=== PATIENT | female | born 1975 | race Two or more races ===

== ENCOUNTER 2022-11-26 10:22 | Outpatient (CLI) | payer OTHER | END 2022-11-26 10:33 | disposition home or self-care (01) | LOC: RX STUDY 10:22 | DX: H90.3 Sensorineural hearing loss, bilateral (principal); R42 Dizziness and giddiness; J32.4 Chronic pansinusitis; R13.10 Dysphagia, unspecified; J38.4 Edema of larynx ==

== ENCOUNTER 2022-11-29 12:08 | Outpatient (CLI) | payer OTHER | END 2022-11-29 12:11 | disposition home or self-care (01) | LOC: SONOGRAMA 12:08 | PROVIDERS: ATTEND Pathology Anatomic Pathology | DX: D34 Benign neoplasm of thyroid gland (principal); E04.9 Nontoxic goiter, unspecified ==

== ENCOUNTER 2022-12-04 09:02 | Outpatient (CLI) | payer OTHER | END 2022-12-04 09:05 | disposition home or self-care (01) | LOC: SONOGRAMA 09:02 | PROVIDERS: ATTEND Internal Medicine Hematology & Oncology | DX: R10.2 Pelvic and perineal pain (principal) ==

== ENCOUNTER 2024-06-29 10:08 | Outpatient (CLI) | payer OTHER | END 2024-06-29 10:14 | disposition home or self-care (01) | LOC: SONOGRAMA 10:08 | DX: D25.9 Leiomyoma of uterus, unspecified (principal); R10.2 Pelvic and perineal pain ==

== ENCOUNTER 2024-07-16 09:57 | Outpatient (CLI) | payer OTHER | END 2024-07-16 10:04 | disposition home or self-care (01) | LOC: SONOGRAMA 09:57 | DX: E04.2 Nontoxic multinodular goiter (principal) ==

== ENCOUNTER 2025-02-11 10:15 | Inpatient (IN) | payer OTHER ==
[~2025-02-11] VITALS: Ht 167.6 cm; Wt 104.3 kg
[2025-02-11] MEDS ORDERED: TOPROL XL50 M1 PO (11:18)
[2025-02-11 11:19] VITALS: BP 149/85
[2025-02-11] MEDS ORDERED: MEGESTROL ACETA40 MG PO (11:19)
[2025-02-11 11:53] VITALS: BP 131/79
[2025-02-17] MEDS ORDERED: CEFAZOLIN SODIUM 1,000 MG VIAL IV SCH (06:00)
[2025-02-17] MEDS ORDERED: CEFAZOLIN SODIUM 1,000 MG VIAL ONE (10:23)
[2025-02-17] MEDS ORDERED: BUPIVACAINE HCL/MPF 0.5% 30ML VIAL ONE (12:46)
[2025-02-17] MEDS ORDERED: LIDOCAINE HCL 1%/EPINEPHRINE 20ML VIAL IJ ONE (12:46)
[2025-02-17] MEDS ORDERED: POVIDONE-IODINE 118 ML BOTT TOP ONE (12:46)
[2025-02-17] MEDS ORDERED: VISTASEAL DUAL APPICATOR 1 EACH APPL TOP ONE (13:05)
[2025-02-17] MEDS ORDERED: THROMBIN,HU/FIBRINOGEN/CALCIUM 10 ML SYRINGE TOP ONE (13:05)
[2025-02-17] MEDS ORDERED: SUGAMMADEX SODIUM 200 MG/2 ML VIAL IV ONE (15:52)
[2025-02-17] MEDS ORDERED: CELECOXIB 200 MG CAPSULE PO STA (16:25)
[2025-02-17] MEDS ORDERED: GABAPENTIN 100 MG CAPSULE PO SCH (17:00)
[2025-02-17] MEDS ORDERED: RINGERS SOLUTION,LACTATED 1,000 ML IV SCH (17:00)
[2025-02-17] MEDS ORDERED: ONDANSETRON HCL 2 MG/ML VIAL ONE (17:02)
[2025-02-17] MEDS ORDERED: CELECOXIB 200 MG CAPSULE PO ONE (17:44)
[2025-02-17] MEDS ORDERED: ACETAMINOPHEN 325 MG TABLET PO ONE (17:44)
[2025-02-17] MEDS ORDERED: GABAPENTIN 100 MG CAPSULE PO ONE (17:44)
[2025-02-17 17:49] LABS: BASO % 0.2 % (0.1-1.2); EOS # 0.09 (0.04-0.54); EOS % 0.7 % (0.7-7.0); LYMPH # 1.90 (1.18-3.74); LYMPH % 15.4 % (19.3-53.1); MEAN PLATELET VOLUME 10.00 fl (9.4-12.4); MONO # 0.69 (0.24-0.82); MONO % 5.6 % (4.7-12.5); NEUT # 9.57 (1.56-6.13); NEUT % 77.8 % (34.0-71.1); RED CELL DISTRIBUTION WIDTH 13.8 % (11.6-14.4)
[2025-02-17] MEDS ORDERED: ONDANSETRON HCL 2 MG/ML VIAL IV SCH (18:00)
[2025-02-17] MEDS ORDERED: ACETAMINOPHEN 325 MG TABLET PO SCH (18:00)
[2025-02-17] MEDS ORDERED: hydrALAZINE HCL 20 MG VIAL IV NR (18:30)
[2025-02-17 20:32] VITALS: BP 131/79
[2025-02-17 20:53] LABS: BASO % 0.1 % (0.1-1.2); EOS # 0.01 (0.04-0.54); EOS % 0.1 % (0.7-7.0); LYMPH # 0.93 (1.18-3.74); LYMPH % 7.7 % (19.3-53.1); MEAN PLATELET VOLUME 10.30 fl (9.4-12.4); MONO # 0.58 (0.24-0.82); MONO % 4.8 % (4.7-12.5); NEUT # 10.54 (1.56-6.13); NEUT % 87.0 % (34.0-71.1); RED CELL DISTRIBUTION WIDTH 13.6 % (11.6-14.4)
[2025-02-17 21:12] LABS: BUN CREA RATIO 13.0 (7.0-25.0); CREATININE SERUM 0.72 mg/dL (0.55-1.02); GFR 85.4; GLUCOSE FASTING 166.0 mg/dL (65-100); OSMOLALITY SERUM 273.0 MOSM/KG (275-295)
[2025-02-18 00:48] VITALS: BP 140/80
[2025-02-18 04:00] VITALS: BP 118/79
[2025-02-18 06:48] LABS: BASO % 0.1 % (0.1-1.2); EOS # 0.01 (0.04-0.54); EOS % 0.1 % (0.7-7.0); LYMPH # 1.22 (1.18-3.74); LYMPH % 13.1 % (19.3-53.1); MEAN PLATELET VOLUME 10.20 fl (9.4-12.4); MONO # 0.54 (0.24-0.82); MONO % 5.8 % (4.7-12.5); NEUT # 7.49 (1.56-6.13); NEUT % 80.6 % (34.0-71.1); RED CELL DISTRIBUTION WIDTH 13.7 % (11.6-14.4)
[2025-02-18 07:21] LABS: BUN CREA RATIO 12.0 (7.0-25.0); CREATININE SERUM 0.73 mg/dL (0.55-1.02); GFR 84.05; GLUCOSE FASTING 113.0 mg/dL (65-100); OSMOLALITY SERUM 273.0 MOSM/KG (275-295)
[2025-02-18 08:55] VITALS: BP 95/61
[2025-02-18 17:06] VITALS: BP 116/76
== END 2025-02-18 18:02 | disposition home or self-care (01) | DRG 743 ==
LOC: OB/GYN 02-17 09:00 → O/R 02-17 09:00 → OB/GYN 02-17 10:15
PROVIDERS: Student in an Organized Health Care Education/Training Program; ADMIT Obstetrics & Gynecology Gynecology; ATTEND Obstetrics & Gynecology Gynecology
PROC: 0UT74ZZ Resection of Bilateral Fallopian Tubes, Percutaneous Endoscopic Approach (ICD-10-PCS; 2025-02-17)
PROC: 0UT24ZZ Resection of Bilateral Ovaries, Percutaneous Endoscopic Approach (ICD-10-PCS; 2025-02-17)
PROC: 0UT94ZZ Resection of Uterus, Percutaneous Endoscopic Approach (ICD-10-PCS; principal; 2025-02-17 14:00)
DX: D25.2 Subserosal leiomyoma of uterus (principal); N93.9 Abnormal uterine and vaginal bleeding, unspecified; N84.0 Polyp of corpus uteri; D27.1 Benign neoplasm of left ovary